=== PATIENT | male | born 1985 | race Caucasian/White ===

== ENCOUNTER 2020-05-16 22:23 | Inpatient (IN) | payer MEDICAID, MEDICARE ==
[~2020-05-16] VITALS: Ht 175.2 cm; Wt 106.9 kg
[~2020-05-16 22:23] MED LIST: OMEP20CA12 PO; SCR1T1 PO
[2020-05-16] MEDS ORDERED: LACTATED RINGERS 1,000 ML IV ONE (22:32)
[2020-05-16 23:12] LABS: BASOPHILS # (AUTO) 0.1 10^3/uL (0.0-0.1); BASOPHILS % (AUTO) 0 % (0-10); EOSINOPHILS # (AUTO) 0.2 10^3/uL (0.0-0.3); EOSINOPHILS % (AUTO) 1 % (0-10); HEMATOCRIT 38 % (40-54); HEMOGLOBIN 12.8 g/dL (13.3-17.7); LYMPHOCYTES # (AUTO) 1.6 10^3/uL (1.0-4.0); LYMPHOCYTES % (AUTO) 7 % (12-44); MEAN CORPUSCULAR HEMOGLOBIN 31 pg (25-34); MEAN CORPUSCULAR HGB CONC 34 g/dL (32-36); MEAN CORPUSCULAR VOLUME 92 fL (80-99); MEAN PLATELET VOLUME 10.2 fL (9.0-12.2); MONOCYTES # (AUTO) 1.6 10^3/uL (0.0-1.0); MONOCYTES % (AUTO) 7 % (0-12); NEUTROPHILS % (AUTO) 85 % (42-75); PLATELET COUNT 255 10^3/uL (130-400); WHITE BLOOD COUNT 23.5 10^3/uL (4.3-11.0)
[2020-05-16] MEDS ORDERED: KETOROLAC 30 MG/ML VIAL IVP STA (23:13)
[2020-05-16] MEDS ORDERED: CEFEPIME INJECTION 2,000 MG in WATER (STERILE) FOR INJECTION 20 ML IV ONE (23:15)
[2020-05-16] MEDS ORDERED: ONDANSETRON 4 MG/2 ML (SDV) Z0FRAN ONE (23:18)
[2020-05-16 23:23] LABS: ALBUMIN 4.1 GM/DL (3.2-4.5); CHLORIDE 103 MMOL/L (98-107); POTASSIUM 3.8 MMOL/L (3.6-5.0); SODIUM 135 MMOL/L (135-145)
[2020-05-16 23:25] LABS: BAND NEUTROPHILS 0 %; BASOPHILS % (MANUAL) 0 %; EOSINOPHILS % (MANUAL) 1 %; LYMPHOCYTES % (MANUAL) 7 %; METAMYELOCYTES % 1 %; MONOCYTES % (MANUAL) 6 %; NEUTROPHILS % (MANUAL) 85 %; RBC MORPH NORMAL
[2020-05-16 23:26] LABS: GLUCOSE 119 MG/DL (70-105); TOTAL PROTEIN 7.1 GM/DL (6.4-8.2)
[2020-05-16 23:27] LABS: CARBON DIOXIDE 21 MMOL/L (21-32)
[2020-05-16 23:28] LABS: BILIRUBIN,TOTAL 0.5 MG/DL (0.1-1.0)
[2020-05-16 23:29] LABS: ALKALINE PHOSPHATASE 78 U/L (40-136)
[2020-05-16 23:30] LABS: ERYTHROCYTE SEDIMENTATION RATE 23 MM/HR (0-15); GFR ESTIMATED > 60
[2020-05-16] MEDS ORDERED: ONDANSETRON 4 MG/2 ML (SDV) Z0FRAN IVP ONE (23:30)
[2020-05-16 23:31] LABS: BUN/CREATININE RATIO 13
[2020-05-16 23:32] LABS: ALANINE AMINOTRANSFERASE 15 U/L (0-55); MAGNESIUM 1.8 MG/DL (1.6-2.4)
--- NOTE | 2020-05-16 23:37 | ED Lower Extremity ---
General Stated Complaint: FEVER/R THIGH PAIN/REDNESS/SWELLING/UNK COVID TEST Source: patient History of Present Illness Date Seen by Provider: May 16, 2020 Time Seen by Provider: 22:32 Initial Comments PT ARRIVES VIA POV C/O PAIN, REDNESS AND SWELLING TO RIGHT UPPER MEDIAL THIGH SINCE YESTERDAY SEEN AT [facility] YESTERDAY FOR THIS PROBLEM--TEMP WAS 103 THERE HAD ULTRASOUND BUT DOES NOT KNOW RESULTS PT GIVES CONVOLUTED STORY ABOUT THEM WANTING TO ADMIT HIM, "BUT THE INSURANCE WOULDN'T COVER IT" --STATES HE HAS "MEDICAID AND MEDICARE AND PART D". WAS GIVEN RX'S FOR KEFLEX AND CLINDAMYCIN--TOOK FIRST DOSE OF EACH TONIGHT, JUST PRIOR TO ARRIVAL STATES HE WAS TESTED FOR COVID-19, BUT DOES NOT KNOW RESULTS C/O NAUSEA, NO VOMITING. NO KNOWN INJURY PT HAS HAD MRSA IN THE PAST AND THIS IS THE SAME PT STATES ON ARRIVAL THAT HE DOES NOT WANT I&D DONE ON IT, STATING "IT HURTS TO MUCH ALREADY" PT SMOKES METH, DENIES IV USE SMOKES 1/2 PPD CIGARETTES STATES "I USED TO BE A REALLY BAD ALCOHOLIC" DRANK 1/2 GALLON A DAY, BUT CLAIMS NO RECENT USE PCP: NONE Allergies and Home Medications Allergies Coded Allergies: eszopiclone (Verified Allergy, Unknown, 05/16/20) quetiapine (Verified Allergy, Unknown, 05/16/20) amoxicillin trihydrate (Verified Adverse Reaction, Intermediate, NAUSEA, 05/19/12) potassium clavulanate (Verified Adverse Reaction, Intermediate, NAUSEA, 05/19/12) Home Medications Omeprazole 20 Mg Capsule.dr, 1 CAP PO DAILY Prescribed by: MICHAEL PERES on 05/19/122256 Sucralfate 1 Gm Tab, 1 GM PO ACHS Prescribed by: MICHEAL PERES on 05/19/122256 Patient Home Medication List Home Medication List Reviewed: Yes Review of Systems Constitutional: fever EENTM: no symptoms reported Respiratory: no symptoms reported; No cough Cardiovascular: no symptoms reported Gastrointestinal: see HPI, nausea; No vomiting Genitourinary: no symptoms reported Musculoskeletal: see HPI Skin: see HPI Psychiatric/Neurological: No Symptoms Reported; Denies Numbness, Denies Paresthesia, Denies Weakness Past Hsqdijq-Tgqvgb-Siplpk Hx Past Med/Social Hx: Reviewed and Corrections made Patient Social History Alcohol Use: Regular Use Recreational Drug Use: Yes (SMOKES METH) Smoking Status: Current Everyday Smoker Type Used: Cigarettes Recent Foreign Travel: No Contact w/Someone Who Travel: No Past Medical History Surgeries: Yes (EGD) Respiratory: No Cardiac: No Neurological: No Reproductive Disorders: No Genitourinary: No Gastrointestinal: Yes Gastroesophageal Reflux Musculoskeletal: No Endocrine: No HEENT: No Cancer: No Psychosocial: Yes Anxiety Integumentary: Yes (MRSA) Blood Disorders: No Family Medical History SOCIAL HISTORY : -ETOH--PT STATES "I USED TO BE A BAD ALCOHOLIC" DRANK 1/2 GALLON OF ALCOHOL / DAY. CLAIMS NO RECENT USE OF 05/16/20 -DRUGS--SMOKES METH, DENIES IV USE -SMOKES 1/2 PPD CIGARETTES Physical Exam Vital Signs Vital Signs - First Documented 05/16/20 22:30 Temp 38.2 Pulse 109 Resp 26 B/P (MAP) 131/87 (102) Pulse Ox 100 O2 Delivery Room Air Capillary Refill : Height, Weight, BMI Height: '" Weight: lbs. oz. kg; BMI Method:Stated General Appearance: WD/WN, no apparent distress, other (CONSTANT MOVEMENTS, SPEECH RAPID AND SOMEWHAT MUMBLED AND ERRATIC. APPEARS TO BE UNDER THE INFLUENCE OF SOME SUBSTANCE/S) Cardiovascular: no murmur, tachycardia Respiratory: normal breath sounds, no respiratory distress, no accessory muscle use Gastrointestinal: non tender, soft Back: no CVA tenderness Legs: right leg other (RIGHT UPPER MEDIAL THIGH WITH VERY LARGE AREA OF ERYTHEMA, WARMTH, TENDERNESS, AND INDURATION. NO FLUCTUANCE. NO DRAINAGE. NO STREAKS. DIAMETER > 30 CM. EXTENDS FROM GROIN TO MEDIAL THIGH. DOES NOT INVOLVE SCROTUM/TESTICLES/PERINEUM OR PERIRECTAL OR BUTTOCKS AREA. 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 ), other (AREA TO RIGHT THIGH NOTED ABOVE) Progress/Results/Core Measures Results/Orders Lab Results Laboratory Tests Test 05/16/20 22:49 05/16/20 22:53 05/16/20 22:58 05/17/20 01:10 Range/Units Coronavirus 2019 (STEPHANIE) Negative Negative Serum Alcohol < 10 <10 MG/DL White Blood Count 23.5 H 4.3-11.0 10^3/uL Red Blood Count 4.12 L 4.30-5.52 10^6/uL Hemoglobin 12.8 L 13.3-17.7 g/dL Hematocrit 38 L 40-54 % Mean Corpuscular Volume 92 80-99 fL Mean Corpuscular Hemoglobin 31 25-34 pg Mean Corpuscular Hemoglobin Concent 34 32-36 g/dL Red Cell Distribution Width 12.6 10.0-14.5 % Platelet Count 255 130-400 10^3/uL Mean Platelet Volume 10.2 9.0-12.2 fL Immature Granulocyte % (Auto) 1 % Neutrophils (%) (Auto) 85 H 42-75 % Lymphocytes (%) (Auto) 7 L 12-44 % Monocytes (%) (Auto) 7 0-12 % Eosinophils (%) (Auto) 1 0-10 % Basophils (%) (Auto) 0 0-10 % Neutrophils # (Auto) 20.0 H 1.8-7.8 10^3/uL Lymphocytes # (Auto) 1.6 1.0-4.0 10^3/uL Monocytes # (Auto) 1.6 H 0.0-1.0 10^3/uL Eosinophils # (Auto) 0.2 0.0-0.3 10^3/uL Basophils # (Auto) 0.1 0.0-0.1 10^3/uL Immature Granulocyte # (Auto) 0.1 0.0-0.1 10^3/uL Neutrophils % (Manual) 85 % Lymphocytes % (Manual) 7 % Monocytes % (Manual) 6 % Eosinophils % (Manual) 1 % Basophils % (Manual) 0 % Metamyelocytes % 1 % Band Neutrophils 0 % Blood Morphology Comment NORMAL Erythrocyte Sedimentation Rate 23 H 0-15 MM/HR Prothrombin Time 14.0 12.2-14.7 SEC INR Comment 1.0 0.8-1.4 Activated Partial Thromboplast Time 39 H 24-35 SEC Sodium Level 135 135-145 MMOL/L Potassium Level 3.8 3.6-5.0 MMOL/L Chloride Level 103 98-107 MMOL/L Carbon Dioxide Level 21 21-32 MMOL/L Anion Gap 11 5-14 MMOL/L Blood Urea Nitrogen 13 7-18 MG/DL Creatinine 1.00 0.60-1.30 MG/DL Estimat Glomerular Filtration Rate > 60 BUN/Creatinine Ratio 13 Glucose Level 119 H 70-105 MG/DL Lactic Acid Level 1.76 0.50-2.00 MMOL/L Calcium Level 9.0 8.5-10.1 MG/DL Corrected Calcium 8.9 8.5-10.1 MG/DL Magnesium Level 1.8 1.6-2.4 MG/DL Total Bilirubin 0.5 0.1-1.0 MG/DL Aspartate Amino Transf (AST/SGOT) 9 5-34 U/L Alanine Aminotransferase (ALT/SGPT) 15 0-55 U/L Alkaline Phosphatase 78 40-136 U/L C-Reactive Protein High Sensitivity 23.57 H 0.00-0.50 MG/DL Total Protein 7.1 6.4-8.2 GM/DL Albumin 4.1 3.2-4.5 GM/DL Procalcitonin 0.11 H <0.10 NG/ML My Orders Orders - LEIDY OVIEDO DO Ed Iv/Invasive Line Start (05/16/20 22:32) Monitor-Rhythm Ecg Trace Only (05/16/20:32) Cbc With Automated Diff (05/16/20:32) Comprehensive Metabolic Panel (05/16/20:32) Hs C Reactive Protein (05/16/20 22:32) Drug Screen Stat (Urine) (05/16/20 22:32) Lactic Acid Analyzer (05/16/20 22:32) Magnesium (05/16/20 22:32) Procalcitonin (Pct) (05/16/20 22:32) Protime With Inr (05/16/20:32) Partial Thromboplastin Time (05/16/20 22:32) Ua Culture If Indicated (05/16/20 22:32) Blood Culture (05/16/20 22:32) Erythrocyte Sedimentation Rate (05/16/20 22:32) Ed Iv/Invasive Line Start (05/16/20 22:32) Lactated Ringers (Lr 1000 Ml Iv Solution (05/16/20 22:32) Sputum Culture (05/16/20 22:32) Urine Culture (05/16/20 22:32) Chest 1 View, Ap/Pa Only (05/16/20 22:32) Ed Iv/Invasive Line Start (05/16/20 22:32) Ed Iv/Invasive Line Start (05/16/20 22:32) Vital Signs Adult Sepsis Patie Q15M (05/16/20 22:32) Remove Rings In Anticipation O (05/16/20 22:32) Covid 19 Inhouse Test (05/16/20 22:32) Manual Differential (05/16/20 22:58) Vancomycin Injection (Vancomycin Injecti (05/16/20 23:15) Cefepime Injection (Maxipime Injection) (05/16/20 23:15) Ketorolac Injection (Toradol Injection) (05/16/20 23:13) Coronavirus Sars-Cov-2 So 2018 (05/16/20 23:21) Ondansetron Injection (Zofran Injectio (05/16/20 23:30) Ondansetron Injection (Zofran Injectio (05/16/20 23:18) Alcohol (05/16/20 23:37) Acetaminophen Tablet (Tylenol Tablet) (05/17/20 00:06) Ed Iv/Invasive Line Start (05/17/20 00:20) Lactated Ringers (Lr 1000 Ml Iv Solution (05/17/20 00:20) Ct Pelvis Wo (05/17/20 00:49) Medications Given in ED Current Medications Medications Dose Ordered Sig/Barbie Route Start Time Stop Time Status Last Admin Dose Admin Cefepime HCl 2000 mg/Sterile Water 20 ml @ 240 mls/hr ONCE ONCE IV 05/16/20 23:15 05/16/20 23:19 DC 05/16/20 23:25 240 MLS/HR Lactated Ringer's 1,000 ml @ 0 mls/hr Q0M ONCE IV 05/16/20 22:32 05/16/20 22:35 DC 05/16/20 23:10 1,000 MLS/HR Lactated Ringer's 1,000 ml @ 0 mls/hr Q0M ONCE IV 05/17/20 00:20 05/17/20 00:22 DC 05/17/20 00:55 1,000 MLS/HR Ondansetron HCl 8 mg ONCE ONCE IVP 05/16/20 23:30 05/16/20 23:31 DC 05/16/20 23:21 8 MG Vital Signs/I&O 05/16/20 22:30 Temp 38.2 Pulse 109 Resp 26 B/P (MAP) 131/87 (102) Pulse Ox 100 O2 Delivery Room Air 05/17/20 00:00 Intake Total 20 ml Balance 20 ml Progress Progress Note : Progress Note PT PLACED IN ISOLATION ROOM, PPE WORN AT ALL TIMES COVID-19 TESTING PERFORMED. GIVEN IV FLUIDS, ANTIBIOTICS, TORADOL FOR PAIN, TYLENOL FOR FEVER HEART RATE DOWN, TEMP DOWN PAIN IMPROVED. NO DETERIORATION IN PT'S CONDITION DURING ER STAY Diagnostic Imaging Comments CXR--NO ACUTE PROCESS, PENDING RADIOLOGIST REVIEW CT PELVIS--MODERATE INFLAMMATORY STRANDING, SUSPICIOUS FOR CELLULITIS, EXTENDING FROM RIGHT INGUINAL REGION TO RIGHT MEDIAL THIGH. NO DRAINABLE ABSCESS. PER [facility] VIA FAX AT 0133 Reviewed: Reviewed by Me Departure Communication (Admissions) 0015--SPOKE WITH DR. CASIANO, ADVISES CT SCAN AND CALL HIM BACK 013--SPOKE WITH DR. ELLIOTT, NO BEDS AVAILABLE AT [facility] ( NO REGULAR MEDICAL BEDS AVAILABLE HERE ) 0136--SPOKE WITH DR. YAN, HOSPITALIST, ACCEPTS PT FOR ADMIT TO ICU 0138--SPOKE WITH DR. CASIANO, REVIEWED CT RESULTS, HE ADVISES ADDITION OF CLINDAMYCIN TO CEFEPIME AND VANCOMYCIN Impression Primary Impression: Sepsis Additional Impressions: Cellulitis of right thigh Methamphetamine use Person under investigation for COVID-19 Hx MRSA infection Disposition: ADMITTED INPATIENT Condition: Improved Admissions Decision to Admit Reason: Admit from ER (General) Decision to Admit/Date: May 17, 2020 Time/Decision to Admit Time: 01:40 Departure-Patient Inst. Referrals: NO,LOCAL PHYSICIAN (PCP/Family) Primary Care Physician Images Extremities-Lower 1 - Cellulitis, Swelling, Tenderness LEIDY OVIEDO DO May 16, 2020 23:37
[2020-05-16] MEDS: VANCOMYCIN INJECTION 1,000 MG in NS (IVPB) 250 ML IV SCH (23:40)
--- NOTE | 2020-05-17 00:05 | NUR ---
Report from VERONICA Malloy.
[2020-05-17] MEDS ORDERED: ACETAMINOPHEN 500 MG TAB (TYLENOL) PO STA (00:06)
[2020-05-17] MEDS ORDERED: LACTATED RINGERS 1,000 ML IV ONE ×2 (00:20→01:46)
[2020-05-17] MEDS: VANCOMYCIN INJECTION 1,000 MG in NS (IVPB) 250 ML IV SCH (00:55)
--- NOTE | 2020-05-17 00:55 | NUR ---
Pt to CT by cart with this nurse present.
[2020-05-17 02:10] LABS: BILIRUBIN,URINE NEGATIVE (NEGATIVE); CLARITY,URINE CLEAR; COLOR,URINE YELLOW; GLUCOSE, URINE (UA) NEGATIVE (NEGATIVE); KETONES,URINE NEGATIVE (NEGATIVE); LEUKOCYTE ESTERASE ,URINE NEGATIVE (NEGATIVE); NITRITE,URINE NEGATIVE (NEGATIVE); PROTEIN,URINE NEGATIVE (NEGATIVE)
[2020-05-17 02:23] LABS: BACTERIA,URINE TRACE /HPF; SQUAMOUS EPITHELIAL CELL,UR RARE /HPF
[2020-05-17 02:29] LABS: AMPHETAMINE SCREEN, URINE POSITIVE (NEGATIVE); BARBITURATE SCREEN URINE NEGATIVE (NEGATIVE); BENZODIAZEPINES SCREEN URINE NEGATIVE (NEGATIVE); CANNABINOID SCREEN, URINE NEGATIVE (NEGATIVE); COCAINE SCREEN URINE NEGATIVE (NEGATIVE); METHADONE STAT NEGATIVE (NEGATIVE); METHAMPHETAMINE SCREEN URINE S POSITIVE (NEGATIVE); OPIATE SCREEN URINE NEGATIVE (NEGATIVE); OXYCODONE STAT NEGATIVE (NEGATIVE); PROPOXYPHENE STAT NEGATIVE (NEGATIVE); TRICYCLIC ANTIDEPRESSANTS SCRE NEGATIVE (NEGATIVE)
[2020-05-17 02:34] VITALS: BP 114/71
[2020-05-17] MEDS ORDERED: NS IV 1000 ML 1,000 ML ONE (02:49)
[2020-05-17] MEDS: NS IV 1000 ML 1,000 ML IV SCH ×4 (03:15→19:56)
[2020-05-17] MEDS ORDERED: fentaNYL INJECTION 100 MCG/2 ML AMP IVP PRN (03:15)
[2020-05-17] MEDS ORDERED: KETOROLAC 30 MG/ML VIAL IVP PRN (03:15)
[2020-05-17] MEDS ORDERED: ONDANSETRON 4 MG/2 ML (SDV) Z0FRAN IVP PRN (03:15)
[2020-05-17] MEDS: ACETAMINOPHEN 500 MG TAB (TYLENOL) PO PRN ×2 (04:55→20:42)
[2020-05-17 05:14] LABS: BASOPHILS # (AUTO) 0.1 10^3/uL (0.0-0.1); BASOPHILS % (AUTO) 0 % (0-10); EOSINOPHILS # (AUTO) 0.2 10^3/uL (0.0-0.3); EOSINOPHILS % (AUTO) 1 % (0-10); HEMATOCRIT 36 % (40-54); LYMPHOCYTES # (AUTO) 1.7 10^3/uL (1.0-4.0); LYMPHOCYTES % (AUTO) 9 % (12-44); MEAN CORPUSCULAR HEMOGLOBIN 31 pg (25-34); MEAN CORPUSCULAR HGB CONC 33 g/dL (32-36); MEAN CORPUSCULAR VOLUME 94 fL (80-99); MEAN PLATELET VOLUME 10.5 fL (9.0-12.2); MONOCYTES # (AUTO) 1.2 10^3/uL (0.0-1.0); MONOCYTES % (AUTO) 6 % (0-12); NEUTROPHILS # (AUTO) 15.8 10^3/uL (1.8-7.8); NEUTROPHILS % (AUTO) 83 % (42-75); PLATELET COUNT 219 10^3/uL (130-400); WHITE BLOOD COUNT 19.1 10^3/uL (4.3-11.0)
[2020-05-17 05:35] LABS: ALBUMIN 3.6 GM/DL (3.2-4.5); CHLORIDE 104 MMOL/L (98-107); POTASSIUM 4.1 MMOL/L (3.6-5.0); SODIUM 135 MMOL/L (135-145)
[2020-05-17 05:36] LABS: CALCIUM 8.5 MG/DL (8.5-10.1)
[2020-05-17 05:37] LABS: GLUCOSE 110 MG/DL (70-105)
[2020-05-17 05:38] LABS: TOTAL PROTEIN 6.2 GM/DL (6.4-8.2)
[2020-05-17 05:39] LABS: BILIRUBIN,TOTAL 0.6 MG/DL (0.1-1.0); CARBON DIOXIDE 21 MMOL/L (21-32)
[2020-05-17 05:41] LABS: ALKALINE PHOSPHATASE 73 U/L (40-136); CREATININE SERUM 0.97 MG/DL (0.60-1.30); GFR ESTIMATED > 60
[2020-05-17 05:42] LABS: BUN/CREATININE RATIO 11
[2020-05-17 05:44] LABS: ALANINE AMINOTRANSFERASE 30 U/L (0-55)
[2020-05-17] MEDS: CLINDAMYCIN 600 MG/50 ML IVPB 50 ML IV SCH ×3 (06:15→18:47)
[2020-05-17] MEDS: CEFEPIME 1,000 MG/SWFI 10 ML IV PUSH IV SCH ×6 (06:16→18:47)
--- NOTE | 2020-05-17 07:22 | Diagnostic Imaging Report ---
PROCEDURE: CT pelvis without contrast. TECHNIQUE: Multiple contiguous axial images were obtained through the pelvis without the use of intravenous contrast. Sagittal and coronal reformations were performed. Auto Exposure Controls were utilized during the CT exam to meet ALARA standards for radiation dose reduction. INDICATION: Right groin swelling and cellulitis. COMPARISON: None available. FINDINGS: Induration of the subcutaneous fat is present in the medial aspect of the right thigh extending along the perineal region. However, there is no soft tissue gas. No loculated fluid collection that would indicate a drainable abscess. No intraperitoneal fluid collection. No fracture or osseous erosions. Thigh musculature is normal in bulk and attenuation on both sides. IMPRESSION: 1. No soft tissue gas or loculated drainable collection. 2. Induration with the subcutaneous fat of the medial right thigh should correspond to the patient's reported cellulitis. 3. Findings are in agreement with the preliminary report. Dictated by: Dictated on workstation # [id number]
--- NOTE | 2020-05-17 07:27 | Diagnostic Imaging Report ---
CHEST 1 VIEW, AP/PA ONLY Indication: Sepsis Comparison: None available. Findings: No focal airspace disease in the visualized lungs. Please note that the posterior lower lobes are poorly evaluated by portable radiography. No pleural effusion or pneumothorax. Normal cardiomediastinal silhouette. Impression: 1. No acute cardiopulmonary process by portable radiography. Dictated by: Dictated on workstation # [id number]
[2020-05-17] MEDS ORDERED: ENOXAPARIN 100 MG/1 ML (LOVENOX) SYR SC NR (09:00)
[2020-05-17] MEDS: VANCOMYCIN 1250 MG/NS 250 ML IVPB IV SCH ×6 (09:47→23:04)
--- NOTE | 2020-05-17 10:11 | History & Physical-Hospitalist ---
History of Present Illness HPI/Chief Complaint Chief complaint: Right thigh cellulitis History of present illness: This is a 34-year-old white male who presented to t he ER with worsening right medial thigh swelling and pain with redness. He is unsure when it really started. His drug screen was positive for methamphetamines. Patient was given IV antibiotics and Dr. Ashton consulted for possible incision and drainage. Patient has refused incision and drainage. Patient very jumpy and obviously withdrawing from methamphetamines. COVID swab taken he was in isolation and use of PPE was maintained during the entire interview and exam. Covid test returned back negative at 2000 hrs. Patient was about to leave AGAINST MEDICAL ADVICE but he decided against it. Source: patient Exam Limitations: no limitations Date Seen 05/17/20 Time Seen by a Provider: 12:00 Attending Physician Kellie Chin MD PCP No,Local Physician Referring Physician Date of Admission May 17, 2020 at 01:40 Home Medications & Allergies Home Medications Reviewed patient Home Medication Reconciliation performed by pharmacy medication reconciliations wet process technician and/or nursing. Patients Allergies have been reviewed. Allergies Allergies Coded Allergies eszopiclone (Verified Allergy, Unknown, 05/16/20) quetiapine (Verified Allergy, Unknown, 05/16/20) amoxicillin trihydrate (Verified Adverse Reaction, Intermediate, NAUSEA, 05/19/12) potassium clavulanate (Verified Adverse Reaction, Intermediate, NAUSEA, 05/19/12) Past Cdeoekj-Fcqwon-Xdmzna Hx Past Med/Social Hx: Reviewed Nursing Past Med/Soc Hx, Reviewed and Corrections made Patient Social History Marrital Status: single Employed/Student: unemployed Alcohol Use: Regular Use Recreational Drug Use: Yes (SMOKES METH) Smoking Status: Current Everyday Smoker Type Used: Cigarettes 2nd Hand Smoke Exposure: Yes Recent Foreign Travel: No Contact w/other who traveled: No Recent Hopitalizations: No Recent Infectious Disease Expo: No Past Medical History Reproductive: No Gastrointestinal: Gastroesophageal Reflux Psychosocial: Anxiety History of Blood Disorders: No Family History SOCIAL HISTORY : -ETOH--PT STATES "I USED TO BE A BAD ALCOHOLIC" DRANK 1/2 GALLON OF ALCOHOL / DAY. CLAIMS NO RECENT USE OF 05/16/20 -DRUGS--SMOKES METH, DENIES IV USE -SMOKES 1/2 PPD CIGARETTES Review of Systems Constitutional: see HPI, malaise, weakness Physical Exam Physical Exam Vital Signs Vital Signs - First Documented 05/16/20 22:30 Temp 38.2 Pulse 109 Resp 26 B/P (MAP) 131/87 (102) Pulse Ox 100 O2 Delivery Room Air Capillary Refill : Less Than 3 Seconds Height, Weight, BMI Height: '" Weight: lbs. oz. kg; 33.00 BMI Method:Stated General Appearance: No Apparent Distress Eyes: Right Eye Normal Inspection, Right Eye PERRL HEENT: PERRL/EOMI, TMs Normal, Normal ENT Inspection, Pharynx Normal, Moist Mucous Membranes Neck: Full Range of Motion, Normal Inspection, Non Tender Respiratory: Chest Non Tender, Lungs Clear, Normal Breath Sounds, No Accessory Muscle Use, No Respiratory Distress Cardiovascular: Regular Rate, Rhythm, No Edema, No Gallop, No JVD, No Murmur, Normal Peripheral Pulses Gastrointestinal: Normal Bowel Sounds, No Organomegaly, No Pulsatile Mass, Non Tender, Soft Back: Normal Inspection, No CVA Tenderness, No Vertebral Tenderness Extremity: Normal Capillary Refill, Normal Inspection, Normal Range of Motion, Non Tender, No Calf Tenderness, No Pedal Edema Neurologic/Psychiatric: Alert, Oriented x3, No Motor/Sensory Deficits, Normal Mood/Affect Skin: Normal Color, Warm/Dry, Rash (right medial thigh redness and ttp) Lymphatic: No Adenopathy Results Results/Procedures Labs Laboratory Tests 05/16/20 22:58 05/17/20 04:55 Patient resulted labs reviewed. Assessment/Plan Admission Diagnosis Assessment: Sepsis Right medial thigh cellulitis with questionable abscess consulting Dr. Ashton Methamphetamine use Plan: IV antibiotics COVID swab negative DVT prophylaxis Monitor for withdrawal Admission Status: Inpatient Order (span 2 midnights) Reason for Inpatient Admission: cellulitis severe Diagnosis/Problems Diagnosis/Problems (1) Cellulitis of right thigh Status: Acute (2) Hx MRSA infection Status: Acute (3) Methamphetamine use Status: Acute (4) Sepsis Status: Acute (5) Person under investigation for COVID-19 Status: Acute Clinical Quality Measures DVT/VTE Risk/Contraindication: Risk Factor Score Per Nursin RFS Level Per Nursing on Admit: 4+=Very High ASUNCION ELLIOTT DO May 17, 2020 10:11
[2020-05-17] MEDS ORDERED: IBUPROFEN 600 MG (MOTRIN) TAB PO ONE (11:53)
[2020-05-17] MEDS ORDERED: DOCUSATE SODIUM 100 MG (COLACE) CAP PO ONE (11:53)
[2020-05-17] MEDS ORDERED: IBUPROFEN TABLET 200 MG TAB PO PRN ×2 (12:00→18:00)
[2020-05-17] MEDS: DOCUSATE SODIUM 100 MG (COLACE) CAP PO PRN (12:13)
[2020-05-17] MEDS: IBUPROFEN 600 MG (MOTRIN) TAB PO PRN ×2 (12:14→23:06)
[2020-05-17] MEDS ORDERED: CLIN150C17 PO (13:03)
[2020-05-17] MEDS ORDERED: CEPH500C PO (13:03)
[2020-05-17] MEDS ORDERED: IBUP-2473 PO (13:05)
[2020-05-17] MEDS ORDERED: ACET-2267 PO (13:05)
--- NOTE | 2020-05-17 13:06 | NUR ---
SPOKE WITH THE PT (I CALLED HIS ROOM PHONE) AND WENT THRU THE EXT MED HISTORY TO COMPLETE THE MED REC ACCORDING TO THE PT THE ONLY PRESCRIPTIONS MEDS HE TAKES ARE THE 2 ANTIBIOTICS THAT HE HAD FILLED AT [facility] ON 05-16-2020 OTC MEDS: TYLENOL IBUPROFEN
--- NOTE | 2020-05-17 14:04 | NUR ---
PTD VANCOMYCIN. LABS: 105.3 KG, SCr 0.97, CrCl 128.3, BMI 34.3 PLAN: 2G BOLUS DOSE GIVEN IN ED; MAINT DOSE 1250MG Q8H PER E-PHARMACY. VANCOMYCIN TROUGH DUE 05/18 @ 0600. IF TROUGH >20, HOLD DOSE AND NOTIFY PHARMACY FOR ADJUSTMENTS.
--- NOTE | 2020-05-17 16:54 | Consultation - Surgery ---
History of Present Illness History of Present Illness Patient Consulted On(yovany/time) 05/17/20 14:40 Date Seen by Provider: May 17, 2020 Time Seen by Provider: 14:40 Allergies and Home Medications Allergies Coded Allergies: eszopiclone (Verified Allergy, Unknown, 05/16/20) quetiapine (Verified Allergy, Unknown, 05/16/20) amoxicillin trihydrate (Verified Adverse Reaction, Intermediate, NAUSEA, 05/19/12) potassium clavulanate (Verified Adverse Reaction, Intermediate, NAUSEA, 05/19/12) Home Medications Acetaminophen 500 Mg Tablet, 1,000 MG PO Q6H PRN for PAIN-MILD (1-4), (Reported) Cephalexin 500 Mg Capsule, 500 MG PO QID, (Reported) FILLED 05-16-2020 #40/10 DAY SUPPLY Clindamycin HCl 150 Mg Capsule, 450 MG PO QID, (Reported) TAKES 3 (150MG) CAPS FILLED 05-16-2020 #84/7 DAY SUPPLY Ibuprofen 200 Mg Tablet, 400 MG PO Q8H PRN for PAIN-MILD (1-4), (Reported) Past Ubzoydv-Ngqvdp-Jkgmre Hx Patient Social History Alcohol Use: Regular Use Recreational Drug Use: Yes (SMOKES METH) Smoking Status: Current Everyday Smoker Type Used: Cigarettes 2nd Hand Smoke Exposure: Yes Recent Foreign Travel: No Contact w/Someone Who Travel: No Recent Infectious Disease Expo: No Recent Hopitalizations: No Surgeries History of Surgeries: Yes (EGD) Respiratory History of Respiratory Disorde: No Cardiovascular History of Cardiac Disorders: No Neurological History of Neurological Disord: No Reproductive System Hx Reproductive Disorders: No Genitourinary History of Genitourinary Disor: No Gastrointestinal History of Gastrointestinal Di: Yes Gastrointestinal Disorders: Gastroesophageal Reflux Musculoskeletal History of Musculoskeletal Dis: No Endocrine History of Endocrine Disorders: No HEENT History of HEENT Disorders: No Cancer History of Cancer: No Psychosocial History of Psychiatric Problem: Yes Behavioral Health Disorders: Anxiety Integumentary History of Skin or Integumenta: Yes (MRSA) Blood Transfusions History of Blood Disorders: No Physical Exam-General Problems Physical Exam Vital Signs Vital Signs - First Documented 05/16/20 22:30 Temp 38.2 Pulse 109 Resp 26 B/P (MAP) 131/87 (102) Pulse Ox 100 O2 Delivery Room Air Capillary Refill : Less Than 3 Seconds Data Review Labs Laboratory Tests 05/16/20 22:49: Coronavirus 2019 (STEPHANIE) Negative 05/16/20 22:53: Serum Alcohol < 10 05/16/20 22:58: White Blood Count 23.5H, Red Blood Count 4.12L, Hemoglobin 12.8L, Hematocrit 38L , Mean Corpuscular Volume 92, Mean Corpuscular Hemoglobin 31, Mean Corpuscular Hemoglobin Concent 34, Red Cell Distribution Width 12.6, Platelet Count 255, Mean Platelet Volume 10.2, Immature Granulocyte % (Auto) 1, Neutrophils (%) (Auto) 85H, Lymphocytes (%) (Auto) 7L, Monocytes (%) (Auto) 7, Eosinophils (%) (Auto) 1, Basophils (%) (Auto) 0, Neutrophils # (Auto) 20.0H, Lymphocytes # (Auto) 1.6, Monocytes # (Auto) 1.6H, Eosinophils # (Auto) 0.2, Basophils # (Auto) 0.1, Immature Granulocyte # (Auto) 0.1, Neutrophils % (Manual) 85, Lymphocytes % (Manual) 7, Monocytes % (Manual) 6, Eosinophils % (Manual) 1, Basophils % (Manual) 0, Metamyelocytes % 1, Band Neutrophils 0, Blood Morphology Comment NORMAL, Erythrocyte Sedimentation Rate 23H, Prothrombin Time 14.0, INR Comment 1.0, Activated Partial Thromboplast Time 39H, Sodium Level 135, Potassium Level 3.8, Chloride Level 103, Carbon Dioxide Level 21, Anion Gap 11, Blood Urea Nitrogen 13, Creatinine 1.00, Estimat Glomerular Filtration Rate > 60, BUN/Creatinine Ratio 13, Glucose Level 119H, Lactic Acid Level 1.76, Calcium Level 9.0, Corrected Calcium 8.9, Magnesium Level 1.8, Total Bilirubin 0.5, Aspartate Amino Transf (AST/SGOT) 9, Alanine Aminotransferase (ALT/SGPT) 15, Alkaline Phosphatase 78, C-Reactive Protein High Sensitivity 23.57H, Total Protein 7.1, Albumin 4.1, Procalcitonin 0.11H 05/17/20 01:10: 05/17/20 02:02: Urine Color YELLOW, Urine Clarity CLEAR, Urine pH 7.0, Urine Specific [place] 1.015L, Urine Protein NEGATIVE, Urine Glucose (UA) NEGATIVE, Urine Ketones NEGATIVE, Urine Nitrite NEGATIVE, Urine Bilirubin NEGATIVE, Urine Urobilinogen 1.0, Urine Leukocyte Esterase NEGATIVE, Urine RBC (Auto) NEGATIVE, Urine RBC NONE, Urine WBC NONE, Urine Squamous Epithelial Cells RARE, Urine Crystals NONE, Urine Bacteria TRACE, Urine Casts NONE, Urine Mucus NEGATIVE, Urine Culture Indicated CULTURE PENDING, Urine Opiates Screen NEGATIVE, Urine Oxycodone Screen NEGATIVE, Urine Methadone Screen NEGATIVE, Urine Propoxyphene Screen NEGATIVE, Urine Barbiturates Screen NEGATIVE, Ur Tricyclic Antidepressants Screen NEGATIVE, Urine Phencyclidine Screen NEGATIVE, Urine Amphetamines Screen POSITIVEH, Urine Methamphetamines Screen POSITIVEH, Urine Benzodiazepines Screen NEGATIVE, Urine Cocaine Screen NEGATIVE, Urine Cannabinoids Screen NEGATIVE 05/17/20 04:55: White Blood Count 19.1H, Red Blood Count 3.86L, Hemoglobin 12.0L, Hematocrit 36L , Mean Corpuscular Volume 94, Mean Corpuscular Hemoglobin 31, Mean Corpuscular Hemoglobin Concent 33, Red Cell Distribution Width 12.5, Platelet Count 219, Mean Platelet Volume 10.5, Immature Granulocyte % (Auto) 1, Neutrophils (%) (Auto) 83H, Lymphocytes (%) (Auto) 9L, Monocytes (%) (Auto) 6, Eosinophils (%) (Auto) 1, Basophils (%) (Auto) 0, Neutrophils # (Auto) 15.8H, Lymphocytes # (Auto) 1.7, Monocytes # (Auto) 1.2H, Eosinophils # (Auto) 0.2, Basophils # (Auto) 0.1, Immature Granulocyte # (Auto) 0.1, Sodium Level 135, Potassium Level 4.1, Chloride Level 104, Carbon Dioxide Level 21, Anion Gap 10, Blood Urea Nitrogen 11, Creatinine 0.97, Estimat Glomerular Filtration Rate > 60, BUN/Creatinine Ratio 11, Glucose Level 110H, Calcium Level 8.5, Corrected Calcium 8.8, Total Bilirubin 0.6, Aspartate Amino Transf (AST/SGOT) 29, Alanine Aminotransferase (ALT/SGPT) 30, Alkaline Phosphatase 73, Total Protein 6.2L, Albumin 3.6 Microbiology 05/16/20 Blood Culture - Preliminary, Resulted No growth Assessment/Plan Assessment/Plan Assessment/Plan Right thigh cellulitis leukocytosis Fever Sepsis PUI Patient feeling better. Cellulitis improving compared to outline continue abx Covid pending no surgical intervention will follow Clinical Quality Measures DVT/VTE Risk/Contraindication: Risk Factor Score Per Nursin RFS Level Per Nursing on Admit: 4+=Very High HUGH CASIANO DO May 17, 2020 16:54
--- NOTE | 2020-05-17 19:49 | NUR ---
DR. ELLIOTT NOTIFIED OF PT'S COVID PCR RESULTS BEING NEGATIVE. NEW ORDERS RECEIVED TO TAKE PT OUT OF ISOLATION
[2020-05-18] MEDS: CLINDAMYCIN 600 MG/50 ML IVPB 50 ML IV SCH ×4 (00:29→18:14)
[2020-05-18] MEDS: CEFEPIME 1,000 MG/SWFI 10 ML IV PUSH IV SCH ×10 (00:29→23:55)
[2020-05-18] MEDS: NS IV 1000 ML 1,000 ML IV SCH (04:31)
[2020-05-18] MEDS ORDERED: TROUGH ORDER-PHARMACY XX NR (06:00)
[2020-05-18 06:44] LABS: BASOPHILS # (AUTO) 0.1 10^3/uL (0.0-0.1); BASOPHILS % (AUTO) 0 % (0-10); EOSINOPHILS # (AUTO) 0.3 10^3/uL (0.0-0.3); EOSINOPHILS % (AUTO) 2 % (0-10); HEMATOCRIT 36 % (40-54); HEMOGLOBIN 11.9 g/dL (13.3-17.7); LYMPHOCYTES # (AUTO) 1.7 10^3/uL (1.0-4.0); LYMPHOCYTES % (AUTO) 8 % (12-44); MEAN CORPUSCULAR HEMOGLOBIN 31 pg (25-34); MEAN CORPUSCULAR HGB CONC 33 g/dL (32-36); MEAN CORPUSCULAR VOLUME 94 fL (80-99); MEAN PLATELET VOLUME 10.6 fL (9.0-12.2); MONOCYTES # (AUTO) 1.9 10^3/uL (0.0-1.0); MONOCYTES % (AUTO) 9 % (0-12); NEUTROPHILS # (AUTO) 16.2 10^3/uL (1.8-7.8); NEUTROPHILS % (AUTO) 80 % (42-75); PLATELET COUNT 214 10^3/uL (130-400); WHITE BLOOD COUNT 20.3 10^3/uL (4.3-11.0)
[2020-05-18 06:58] LABS: ALBUMIN 3.5 GM/DL (3.2-4.5)
[2020-05-18 06:59] LABS: CHLORIDE 108 MMOL/L (98-107); POTASSIUM 4.1 MMOL/L (3.6-5.0); SODIUM 141 MMOL/L (135-145)
[2020-05-18 07:00] LABS: CALCIUM 8.8 MG/DL (8.5-10.1)
[2020-05-18 07:01] LABS: GLUCOSE 107 MG/DL (70-105); TOTAL PROTEIN 6.3 GM/DL (6.4-8.2)
[2020-05-18 07:02] LABS: CARBON DIOXIDE 22 MMOL/L (21-32)
[2020-05-18 07:03] LABS: BILIRUBIN,TOTAL 0.4 MG/DL (0.1-1.0)
[2020-05-18 07:04] LABS: ALKALINE PHOSPHATASE 100 U/L (40-136)
[2020-05-18 07:05] LABS: CREATININE SERUM 0.87 MG/DL (0.60-1.30); GFR ESTIMATED > 60
[2020-05-18 07:06] LABS: BUN/CREATININE RATIO 8
[2020-05-18 07:08] LABS: ALANINE AMINOTRANSFERASE 68 U/L (0-55)
[2020-05-18 07:13] LABS: VANCOMYCIN,TROUGH 11.5 UG/ML (10.0-20.0)
[2020-05-18] MEDS: VANCOMYCIN 1250 MG/NS 250 ML IVPB IV SCH ×6 (07:45→23:55)
[2020-05-18] MEDS: ENOXAPARIN 40 MG/0.4 ML (LOVENOX) SYR SC SCH (08:52)
[2020-05-18] MEDS: DOCUSATE SODIUM 100 MG (COLACE) CAP PO PRN (08:56)
--- NOTE | 2020-05-18 09:04 | Progress Note - Surgery ---
DIOGENES ROGERS MED STUDENT 05/18/20 0904: Subjective Time Seen by a Provider: 07:30 Subjective/Events-last exam pt communicating and fully oriented. Pt overall feels well and has no new com plaints at this time. Pts states R thigh cellulitis look similiar today compared to yesterday. 09/18 pain. Pt has not passed stool since 05/14 which pt attributes to hospital environment, states abd feels distended. Pt denies chest pain, abd pain, SOB, dysuria and N/Ving. Review of Systems General: No Night Sweats, No Fatigue Pulmonary: No Dyspnea, No Pleuritic Chest Pain Cardiovascular: No: Chest Pain, Palpitations, Edema Gastrointestinal: Constipation (acute. ); No: Nausea, Vomiting, Abdominal Pain, Diarrhea Genitourinary: No Dysuria, No Incontinence Musculoskeletal: arm pain (soreness over R bicept. ) Focused Exam Lactate Level 05/16/20 22:58: Lactic Acid Level 1.76 Objective Exam Vital Signs Date Time Temp Pulse Resp B/P (MAP) Pulse Ox O2 Delivery O2 Flow Rate FiO2 05/18/20 08:00 99 Room Air 05/18/20 08:00 99 Room Air 05/18/20 07:45 37.2 91 128/71 99 Room Air 05/18/20 04:32 36.4 85 106/61 98 Room Air 05/18/20 00:30 37.2 05/17/20 23:15 38.2 103 119/65 95 Room Air 05/17/20 23:06 38.2 05/17/20 20:00 37.6 95 112/68 99 Room Air 05/17/20 19:52 Room Air 05/17/20 19:52 99 Room Air 05/17/20 16:00 36.8 85 125/75 99 Room Air 05/17/20 12:00 36.9 90 109/60 99 Room Air 05/17/20 09:00 99 Room Air 05/17/20 09:00 Room Air I & O 05/18/20 07:00 Intake Total 2800 ml Output Total 1450 ml Balance 1350 ml Capillary Refill : Less Than 3 Seconds General Appearance: No Apparent Distress, WD/WN Respiratory: Lungs Clear, Normal Breath Sounds, No Accessory Muscle Use, No Respiratory Distress Cardiovascular: Regular Rate, Rhythm, No Edema, No Gallop, No Murmur, Normal Peripheral Pulses Neurologic/Psychiatric: Alert, Oriented x3, No Motor/Sensory Deficits, Normal Mood/Affect Skin: Normal Color, Warm/Dry, Rash (right medial thigh redness and ttp. ) Lymphatic: No Adenopathy Results Lab Laboratory Tests 05/18/20 06:33: White Blood Count 20.3H, Red Blood Count 3.85L, Hemoglobin 11.9L, Hematocrit 36L , Mean Corpuscular Volume 94, Mean Corpuscular Hemoglobin 31, Mean Corpuscular Hemoglobin Concent 33, Red Cell Distribution Width 12.5, Platelet Count 214, Mean Platelet Volume 10.6, Immature Granulocyte % (Auto) 1, Neutrophils (%) (Auto) 80H, Lymphocytes (%) (Auto) 8L, Monocytes (%) (Auto) 9, Eosinophils (%) (Auto) 2, Basophils (%) (Auto) 0, Neutrophils # (Auto) 16.2H, Lymphocytes # (Auto) 1.7, Monocytes # (Auto) 1.9H, Eosinophils # (Auto) 0.3, Basophils # (Auto) 0.1, Immature Granulocyte # (Auto) 0.2H, Sodium Level 141, Potassium Level 4.1, Chloride Level 108H, Carbon Dioxide Level 22, Anion Gap 11, Blood Urea Nitrogen 7, Creatinine 0.87, Estimat Glomerular Filtration Rate > 60, BUN/ Creatinine Ratio 8, Glucose Level 107H, Calcium Level 8.8, Corrected Calcium 9.2, Total Bilirubin 0.4, Aspartate Amino Transf (AST/SGOT) 33, Alanine Aminotransferase (ALT/SGPT) 68H, Alkaline Phosphatase 100, Total Protein 6.3L, Albumin 3.5, Vancomycin Level Trough 11.5 Microbiology 05/16/20 Blood Culture - Preliminary, Resulted No growth Assessment/Plan Assessment/Plan Admission Diagonsis R thigh cellulitis and sepsis Assessment/Plan Right thigh cellulitis: Controlled on ABs. Continue to monitor its development. Recommend no intervention at this time. 05/17 CT of pelvis: IMPRESSION: 1. No soft tissue gas or loculated drainable collection. 2. Induration with the subcutaneous fat of the medial right thigh should correspond to the patient's reported cellulitis. 3. Findings are in agreement with the preliminary report. Sepsis: Likely due to cellulitis. Blood culture status still pending. WBC count increased to 20.3 today from 19.1. Continue Vancomycin, cefepime, and clindamyin . Methamphetamine abuse: consider counseling. Acute sepsis induced hepatitis: 05/18 liver function enzymes elevated. Continue to monitor liver status. Acute constipation: Consider Senna or Docusate if this develops into a primary concern for the pt. No abd pain at this time. Clinical Quality Measures DVT/VTE Risk/Contraindication: Risk Factor Score Per Nursin RFS Level Per Nursing on Admit: 4+=Very High SON CAMARILLO DO 05/18/20 1202: Subjective Time Seen by a Provider: 10:32 Subjective/Events-last exam Pt seen and examined, states he thinks the infection is spreading up into abdomen. He also thinks "it is taller" away from leg. He is concerned that it is not getting better with IV ABX. Review of Systems General: No Night Sweats, No Fatigue Cardiovascular: No: Chest Pain, Palpitations Gastrointestinal: Constipation (acute. ); No: Nausea, Vomiting, Abdominal Pain Objective Exam General Appearance: No Apparent Distress, WD/WN Respiratory: Lungs Clear, Normal Breath Sounds, No Accessory Muscle Use, No Respiratory Distress Cardiovascular: Regular Rate, Rhythm, No Murmur Gastrointestinal: non tender, soft, no organomegaly, hernia (small umbilical hernia) Neurologic/Psychiatric: Alert, Oriented x3 Skin: Other (Cellulitis Right upper inner thigh and ttp. no fluctuance pal pated. Erythema is outside line ) Assessment/Plan Assessment/Plan Assessment/Plan Right Thigh Cellulits - ?? slightly worse, ABX changed per IM. No signs of fluctuance, therefore nothing to I&D or drain at this time. Will continue to monitor. Supervisory-Addendum Brief Verification & Attestation Participated in pt care: history, MDM, physical Personally performed: exam, history, MDM Care discussed with: Medical Student Procedures: n/a Verification and Attestation of Medical Student E/M Service A medical student performed and documented this service. I then reviewed and verified all information documented by the medical student and made modifications to such information, when appropriate. I personally performed a physical exam, medical decision making and then discussed any differences between the notes and made revisions as necessary to create one note. Son Camarillo , 05/18/20 , 12:04 DIOGENES ROGERS MED STUDENT May 18, 2020 09:04 SON CAMARILLO DO May 18, 2020 12:02
--- NOTE | 2020-05-18 11:25 | Progress Note - Hospitalist ---
Subjective HPI/CC On Admission Date Seen by Provider: May 18, 2020 Time Seen by Provider: 11:15 Chief complaint: Right thigh cellulitis History of present illness: This is a 34-year-old white male who presented to the ER with worsening right medial thigh swelling and pain with redness. He is unsure when it really started. His drug screen was positive for methamphetamines. Patient was given IV antibiotics and Dr. Ashton consulted for possible incision and drainage. Patient has refused incision and drainage. Patient very jumpy and obviously withdrawing from methamphetamines. COVID swab taken he was in isolation and use of PPE was maintained during the entire interview and exam. Covid test returned back negative at 2000 hrs. Patient was about to leave AGAINST MEDICAL ADVICE but he decided against it. Subjective/Events-last exam Patient withdrawing from meth and causing him a lot of anxiety Convinced the cellulitis is rising up into his abdomen and there is no evidence of that and Dr Ford has evaluated him and no evidence of any involvement in his abdomen. Cellulitis has spread a bit so will add Eraxis. Anxiety will require benzos. Review of Systems General: Fatigue rash Focused Exam Lactate Level 05/16/20 22:58: Lactic Acid Level 1.76 Objective Exam Vital Signs Vital Signs Date Time Temp Pulse Resp B/P (MAP) Pulse Ox O2 Delivery O2 Flow Rate FiO2 05/18/20 16:18 36.2 95 141/69 98 Room Air 05/17/20 02:34 18 Capillary Refill : Less Than 3 Seconds General Appearance: No Apparent Distress, WD/WN, Anxious Respiratory: Chest Non Tender, Lungs Clear, Normal Breath Sounds, No Accessory Muscle Use, No Respiratory Distress Cardiovascular: Regular Rate, Rhythm, No Edema, No Gallop, No JVD, No Murmur, Normal Peripheral Pulses Neurologic/Psychiatric: Alert, Oriented x3, No Motor/Sensory Deficits, Normal Mood/Affect Skin: Rash (right thigh redness and ttp) Results/Procedures Lab Laboratory Tests 05/18/20 06:33 Patient resulted labs reviewed. Assessment/Plan Assessment and Plan Assess & Plan/Chief Complaint Cellulitis Meth use IV abx Eraxis Diagnosis/Problems Diagnosis/Problems (1) Cellulitis of right thigh Status: Acute (2) Hx MRSA infection Status: Acute (3) Methamphetamine use Status: Acute (4) Sepsis Status: Acute (5) Person under investigation for COVID-19 Status: Acute Clinical Quality Measures DVT/VTE Risk/Contraindication: Risk Factor Score Per Nursin RFS Level Per Nursing on Admit: 4+=Very High ASUNCION ELLIOTT DO May 18, 2020 11:25
[2020-05-18] MEDS ORDERED: ANIDULAFUNGIN INJECTION 200 MG in NS (IVPB) 250 ML IV NR (11:30)
[2020-05-18] MEDS ORDERED: ACETAMINOPHEN 500 MG TAB (TYLENOL) PO PRN (11:30)
[2020-05-18] MEDS ORDERED: polyethylene glycoL POWDER 17 GM (MIRALAX) PACK PO NR (11:45)
[2020-05-18] MEDS ORDERED: LACTULOSE SYRUP 10GM/15ML (ENULOSE) 30ML UDC PO NR (11:45)
[2020-05-18] MEDS ORDERED: SENNA W/DOCUSATE (SENOKOT S) TABLET PO NR (11:45)
[2020-05-18] MEDS: LORazepam 0.5 MG (ATIVAN) TABLET PO PRN ×2 (12:09→18:14)
--- NOTE | 2020-05-18 12:30 | NUR ---
ASSUMED CARE OF PATIENT. REPORT REC'D FROM VERONICA MEIER.
[2020-05-18] MEDS: ACETAMINOPHEN 500 MG TAB (TYLENOL) PO PRN (13:15)
[2020-05-18] MEDS: IBUPROFEN TABLET 200 MG TAB PO PRN (14:07)
--- NOTE | 2020-05-18 14:30 | NUR ---
UP WALKING IN HALLS.
--- NOTE | 2020-05-18 17:48 | NUR ---
PATIENT REPORTS SMALL BM. HAS BEEN UP FREQUENTLY WALKING IN THE HALLS.
[2020-05-18] MEDS ORDERED: WATER (STERILE) FOR INJECTION 10 ML ONE ×2 (18:20→23:13)
[2020-05-18] MEDS ORDERED: CEFEPIME 1 GM (MAXIPIME) VIAL ONE ×2 (18:20→23:13)
[2020-05-18] MEDS ORDERED: polyethylene glycoL POWDER 17 GM (MIRALAX) PACK PO SCH (21:00)
[2020-05-18] MEDS: SENNA W/DOCUSATE (SENOKOT S) TABLET PO SCH (21:10)
[2020-05-18] MEDS: LACTULOSE SYRUP 10GM/15ML (ENULOSE) 30ML UDC PO SCH (21:10)
[2020-05-19] MEDS: CLINDAMYCIN 600 MG/50 ML IVPB 50 ML IV SCH ×2 (01:17→06:35)
[2020-05-19] MEDS: ACETAMINOPHEN 500 MG TAB (TYLENOL) PO PRN (02:12)
[2020-05-19] MEDS ORDERED: WATER (STERILE) FOR INJECTION 10 ML ONE (06:24)
[2020-05-19] MEDS ORDERED: CEFEPIME 1 GM (MAXIPIME) VIAL ONE (06:24)
[2020-05-19] MEDS: CEFEPIME 1,000 MG/SWFI 10 ML IV PUSH IV SCH ×2 (06:35)
--- NOTE | 2020-05-19 06:49 | Progress Note - Hospitalist ---
Subjective HPI/CC On Admission Date Seen by Provider: May 19, 2020 Chief complaint: Right thigh cellulitis History of present illness: This is a 34-year-old white male who presented to the ER with worsening right medial thigh swelling and pain with redness. He is unsure when it really started. His drug screen was positive for methamphetamin es. Patient was given IV antibiotics and Dr. Ashton consulted for possible incision and drainage. Patient has refused incision and drainage. Patient very jumpy and obviously withdrawing from methamphetamines. COVID swab taken he was in isolation and use of PPE was maintained during the entire interview and exam. Covid test returned back negative at 2000 hrs. Patient was about to leave AGAINST MEDICAL ADVICE but he decided against it. Review of Systems rash Focused Exam Lactate Level 05/16/20 22:58: Lactic Acid Level 1.76 Objective Exam Vital Signs Vital Signs Date Time Temp Pulse Resp B/P (MAP) Pulse Ox O2 Delivery O2 Flow Rate FiO2 05/19/20 08:00 36.8 94 119/66 97 Room Air 05/17/20 02:34 18 Capillary Refill : Less Than 3 Seconds Results/Procedures Lab Laboratory Tests 05/19/20 07:30 Patient resulted labs reviewed. Assessment/Plan Assessment and Plan Assess & Plan/Chief Complaint Cellulitis Meth use IV abx Eraxis Diagnosis/Problems Diagnosis/Problems (1) Cellulitis of right thigh Status: Acute (2) Hx MRSA infection Status: Acute (3) Methamphetamine use Status: Acute (4) Sepsis Status: Acute (5) Person under investigation for COVID-19 Status: Acute Clinical Quality Measures DVT/VTE Risk/Contraindication: Risk Factor Score Per Nursin RFS Level Per Nursing on Admit: 4+=Very High ASUNCION ELLIOTT DO May 19, 2020 06:49
[2020-05-19] MEDS: VANCOMYCIN 1250 MG/NS 250 ML IVPB IV SCH ×2 (07:03)
[2020-05-19 07:36] LABS: BASOPHILS # (AUTO) 0.1 10^3/uL (0.0-0.1); BASOPHILS % (AUTO) 0 % (0-10); EOSINOPHILS # (AUTO) 0.4 10^3/uL (0.0-0.3); EOSINOPHILS % (AUTO) 2 % (0-10); HEMATOCRIT 34 % (40-54); HEMOGLOBIN 11.3 g/dL (13.3-17.7); LYMPHOCYTES # (AUTO) 1.7 10^3/uL (1.0-4.0); LYMPHOCYTES % (AUTO) 9 % (12-44); MEAN CORPUSCULAR HEMOGLOBIN 31 pg (25-34); MEAN CORPUSCULAR HGB CONC 34 g/dL (32-36); MEAN CORPUSCULAR VOLUME 92 fL (80-99); MEAN PLATELET VOLUME 10.3 fL (9.0-12.2); MONOCYTES # (AUTO) 1.3 10^3/uL (0.0-1.0); MONOCYTES % (AUTO) 7 % (0-12); NEUTROPHILS # (AUTO) 15.6 10^3/uL (1.8-7.8); NEUTROPHILS % (AUTO) 81 % (42-75); PLATELET COUNT 279 10^3/uL (130-400); WHITE BLOOD COUNT 19.3 10^3/uL (4.3-11.0)
[2020-05-19 07:53] LABS: ALANINE AMINOTRANSFERASE 58 U/L (0-55); ALBUMIN 3.4 GM/DL (3.2-4.5); ALKALINE PHOSPHATASE 104 U/L (40-136); BILIRUBIN,TOTAL 0.3 MG/DL (0.1-1.0); BUN/CREATININE RATIO 9; CALCIUM 8.8 MG/DL (8.5-10.1); CARBON DIOXIDE 21 MMOL/L (21-32); CHLORIDE 106 MMOL/L (98-107); CREATININE SERUM 0.87 MG/DL (0.60-1.30); GFR ESTIMATED > 60; GLUCOSE 134 MG/DL (70-105); SODIUM 139 MMOL/L (135-145); TOTAL PROTEIN 6.7 GM/DL (6.4-8.2)
[2020-05-19] MEDS: ENOXAPARIN 40 MG/0.4 ML (LOVENOX) SYR SC SCH (07:57)
[2020-05-19] MEDS: LORazepam 0.5 MG (ATIVAN) TABLET PO PRN (08:12)
[2020-05-19] MEDS: SENNA W/DOCUSATE (SENOKOT S) TABLET PO SCH (08:12)
[2020-05-19] MEDS: LACTULOSE SYRUP 10GM/15ML (ENULOSE) 30ML UDC PO SCH (08:13)
[2020-05-19] MEDS: IBUPROFEN TABLET 200 MG TAB PO PRN (08:13)
[2020-05-19] MEDS ORDERED: ANIDULAFUNGIN INJECTION 100 MG in NS (IVPB) 100 ML IV SCH ×2 (09:00→10:00)
--- NOTE | 2020-05-19 10:14 | Progress Note - Surgery ---
DIOGENES ROGERS MED STUDENT 05/19/20 1014: Subjective Time Seen by a Provider: 09:35 Subjective/Events-last exam pt states hes is 'feeling 100% better' compared to yesterday and would like to be discharged. Pt states he walked down to the 1st floor earlier today and this elicited no pain in R thigh, 0/10. WBC count dropped from 20.3 to 19.3. Additionally, the pt has passed stool multiple times since being provides laxatives and no longer feels distended. Though pt is feeling better, the cellulitis did not look improved on PE and remains outside the line draw by ER 2 days ago. Focused Exam Lactate Level 05/16/20 22:58: Lactic Acid Level 1.76 Objective Exam Vital Signs Date Time Temp Pulse Resp B/P (MAP) Pulse Ox O2 Delivery O2 Flow Rate FiO2 05/19/20 08:00 36.8 94 119/66 97 Room Air 05/19/20 08:00 Room Air 05/19/20 08:00 Room Air 05/19/20 03:53 36.8 80 120/74 96 Room Air 05/18/20 23:32 37.4 92 116/74 95 Room Air 05/18/20 21:10 Room Air 05/18/20 21:10 Room Air 05/18/20 19:34 37.4 84 124/69 96 Room Air 05/18/20 16:18 36.2 95 141/69 98 Room Air 05/18/20 15:15 37.2 05/18/20 13:44 Room Air 05/18/20 12:00 38.1 95 127/86 98 Room Air 05/18/20 11:45 36.9 91 118/73 99 Room Air 05/18/20 10:40 37.6 96 133/87 96 Room Air I & O 05/19/20 07:00 Intake Total 1810.0 ml Balance 1810.0 ml Capillary Refill : Less Than 3 Seconds General Appearance: No Apparent Distress, WD/WN HEENT: Pharynx Normal, Moist Mucous Membranes Neck: Full Range of Motion, Normal Inspection Respiratory: Lungs Clear, Normal Breath Sounds, No Accessory Muscle Use, No Respiratory Distress Cardiovascular: Regular Rate, Rhythm, No Edema (no edema in the legs and feet b/l, swelling is present around the R thigh cellulitis. ), No Gallop, No Murmur, Normal Peripheral Pulses Peripheral Pulses: 2+ Dorsalis Pedis (R), 2+ Left Dors-Pedis (L), 2+ Radial Pulses (R), 2+ Radial Pulses (L) Gastrointestinal: normal bowel sounds, non tender, soft, no organomegaly, hernia (small umbilical hernia) Extremity: No Pedal Edema Neurologic/Psychiatric: Alert, Oriented x3, Normal Mood/Affect, scanning clerk II-XII Norm as Tested Skin: Other (R thigh cellulitis, unimproved compared to 05/18 PE. ) Lymphatic: No Adenopathy Results Lab Laboratory Tests 05/19/20 07:30: White Blood Count 19.3H, Red Blood Count 3.66L, Hemoglobin 11.3L, Hematocrit 34L , Mean Corpuscular Volume 92, Mean Corpuscular Hemoglobin 31, Mean Corpuscular Hemoglobin Concent 34, Red Cell Distribution Width 12.5, Platelet Count 279, Mean Platelet Volume 10.3, Immature Granulocyte % (Auto) 1, Neutrophils (%) (Auto) 81H, Lymphocytes (%) (Auto) 9L, Monocytes (%) (Auto) 7, Eosinophils (%) (Auto) 2, Basophils (%) (Auto) 0, Neutrophils # (Auto) 15.6H, Lymphocytes # (Auto) 1.7, Monocytes # (Auto) 1.3H, Eosinophils # (Auto) 0.4H, Basophils # (Auto) 0.1, Immature Granulocyte # (Auto) 0.2H, Sodium Level 139, Potassium Level 4.0, Chloride Level 106, Carbon Dioxide Level 21, Anion Gap 12, Blood Urea Nitrogen 8, Creatinine 0.87, Estimat Glomerular Filtration Rate > 60, BUN/Creatinine Ratio 9, Glucose Level 134H, Calcium Level 8.8, Corrected Calcium 9.3, Total Bilirubin 0.3, Aspartate Amino Transf (AST/SGOT) 21, Alanine Aminotransferase (ALT/SGPT) 58H, Alkaline Phosphatase 104, Total Protein 6.7, Albumin 3.4 Microbiology 05/16/20 Blood Culture - Preliminary, Resulted No growth Assessment/Plan Assessment/Plan Assessment/Plan Right thigh cellulitis: unimproved compared to 05/18 PE, anidulafungin added yesterday. Continue to monitor its development. 05/17 CT of pelvis: IMPRESSION: 1. No soft tissue gas or loculated drainable collection. 2. Induration with the subcutaneous fat of the medial right thigh should correspond to the patient's reported cellulitis. 3. Findings are in agreement with the preliminary report. Sepsis: Likely due to cellulitis. Blood culture neg for preliminary growth. WBC count dropped from 20.3 to 19.3 today. Continue Vancomycin, cefepime, clindamyin and anidulafungin. Methamphetamine abuse: consider counseling. Acute sepsis induced hepatitis: 05/19 liver function enzymes remain elevated. Continue to monitor liver status. Acute constipation: laxative regiment started yesterday followed by successful evacuation of stool. Clinical Quality Measures DVT/VTE Risk/Contraindication: Risk Factor Score Per Nursin RFS Level Per Nursing on Admit: 4+=Very High SON CAMARILLO DO 05/19/20 1104: Subjective Time Seen by a Provider: 10:31 Subjective/Events-last exam Pt seen and examined, states he is walking without pain and thinks it has stopped spreading. He wants to go home. Review of Systems General: No Chills, No Night Sweats Cardiovascular: No: Chest Pain, Palpitations Gastrointestinal: No: Nausea, Vomiting, Abdominal Pain Objective Exam General Appearance: No Apparent Distress HEENT: Moist Mucous Membranes; No Scleral Icterus (L), No Scleral Icterus (R) Respiratory: Lungs Clear, Normal Breath Sounds, No Accessory Muscle Use, No Respiratory Distress Cardiovascular: Regular Rate, Rhythm, No Murmur Skin: Other (R thigh cellulitis, about same as yesterday....possibly a little better, not as firm ) Assessment/Plan Assessment/Plan Assessment/Plan Right Thigh Cellulitis It does not appear to be getting worse, it might be reasonable to send pt home on oral ABX. He was cautioned that if it get worse at all he needs to come back right away. No surgical intervention needed at this time. Supervisory-Addendum Brief Verification & Attestation Participated in pt care: history, MDM, physical Personally performed: exam, history, MDM Care discussed with: Medical Student Procedures: n/a Verification and Attestation of Medical Student E/M Service A medical student performed and documented this service. I then reviewed and verified all information documented by the medical student and made modifications to such information, when appropriate. I personally performed a physical exam, medical decision making and then discussed any differences between the notes and made revisions as necessary to create one note. Son Camarillo , 05/19/20 , 11:04 DIOGENES ROGERS MED STUDENT May 19, 2020 10:14 SON CAMARILLO DO May 19, 2020 11:04
[2020-05-19] MEDS ORDERED: FLUC100T PO (13:23)
[2020-05-19] MEDS ORDERED: CEFD300C3 PO (13:23)
--- NOTE | 2020-05-19 13:24 | Discharge Summary ---
Discharge Summary Hospital Course Was the Problem List Reviewed?: Yes Problems/Dx: (1) Cellulitis of right thigh Status: Acute (2) Hx MRSA infection Status: Acute (3) Methamphetamine use Status: Acute (4) Sepsis Status: Acute (5) Person under investigation for COVID-19 Status: Acute Hospital Course Date of Admission: May 17, 2020 at 01:40 Admission Diagnosis : Family Physician/Provider: No,Local Physician Date of Discharge: 05/19/20 Discharge Diagnosis: Right leg cellulitis, sepsis, meth use Hospital Course: Short course after admitted with ER and cellulitis placed on broad spectrum abx. IVF initiated. COVID swab negative. Dr Ford consulted. Added antifungal when cellulitis extended a bit and it had improved overnight so he was sent home on appropriate abx. Labs and Pending Lab Test: Laboratory Tests 05/19/20 07:30: White Blood Count 19.3H, Red Blood Count 3.66L, Hemoglobin 11.3L, Hematocrit 34L , Mean Corpuscular Volume 92, Mean Corpuscular Hemoglobin 31, Mean Corpuscular Hemoglobin Concent 34, Red Cell Distribution Width 12.5, Platelet Count 279, Mean Platelet Volume 10.3, Immature Granulocyte % (Auto) 1, Neutrophils (%) (Auto) 81H, Lymphocytes (%) (Auto) 9L, Monocytes (%) (Auto) 7, Eosinophils (%) (Auto) 2, Basophils (%) (Auto) 0, Neutrophils # (Auto) 15.6H, Lymphocytes # (Auto) 1.7, Monocytes # (Auto) 1.3H, Eosinophils # (Auto) 0.4H, Basophils # (Auto) 0.1, Immature Granulocyte # (Auto) 0.2H, Sodium Level 139, Potassium Level 4.0, Chloride Level 106, Carbon Dioxide Level 21, Anion Gap 12, Blood Urea Nitrogen 8, Creatinine 0.87, Estimat Glomerular Filtration Rate > 60, BUN/Creatinine Ratio 9, Glucose Level 134H, Calcium Level 8.8, Corrected Calcium 9.3, Total Bilirubin 0.3, Aspartate Amino Transf (AST/SGOT) 21, Alanine Aminotransferase (ALT/SGPT) 58H, Alkaline Phosphatase 104, Total Protein 6.7, Albumin 3.4 Microbiology 05/16/20 Blood Culture - Preliminary, Resulted No growth Home Meds Active Cefdinir 300 Mg Capsule 300 Mg PO BID Diflucan (Fluconazole) 100 Mg Tablet 100 Mg PO DAILY Reported Ibuprofen 200 Mg Tablet 400 Mg PO Q8H PRN Tylenol Extra Strength (Acetaminophen) 500 Mg Tablet 1,000 Mg PO Q6H PRN Clindamycin HCl 150 Mg Capsule 450 Mg PO QID TAKES 3 (150MG) CAPS FILLED 05-16-2020 #84/7 DAY SUPPLY Cephalexin 500 Mg Capsule 500 Mg PO QID FILLED 05-16-2020 #40/10 DAY SUPPLY Assessment/Pt Instructions [facility] 1 week Discharge Planning: <30 minutes discharge planning Discharge Instructions Discharge Diet: No Restrictions Discharge Physical Examination Vital Signs Vital Signs Date Time Temp Pulse Resp B/P (MAP) Pulse Ox O2 Delivery O2 Flow Rate FiO2 05/19/20 08:00 36.8 94 119/66 97 Room Air 05/17/20 02:34 18 General Appearance: No Apparent Distress, WD/WN Allergies: Coded Allergies: eszopiclone (Verified Allergy, Unknown, 05/16/20) quetiapine (Verified Allergy, Unknown, 05/16/20) amoxicillin trihydrate (Verified Adverse Reaction, Intermediate, NAUSEA, 05/19/12) potassium clavulanate (Verified Adverse Reaction, Intermediate, NAUSEA, 05/19/12) Discharge Summary Date of Admission May 17, 2020 at 01:40 Date of Discharge Discharge Date: May 19, 2020 Admission Diagnosis Assessment: Sepsis Right medial thigh cellulitis with questionable abscess consulting Dr. Ashton Methamphetamine use Plan: IV antibiotics COVID swab negative DVT prophylaxis Monitor for withdrawal Discharge Diagnosis Cellulitis Meth use IV abx Eraxis (1) Cellulitis of right thigh Status: Acute (2) Hx MRSA infection Status: Acute (3) Methamphetamine use Status: Acute (4) Sepsis Status: Acute (5) Person under investigation for COVID-19 Status: Acute Clinical Quality Measures DVT/VTE Risk/Contraindication: Risk Factor Score Per Nursin RFS Level Per Nursing on Admit: 4+=Very High ASUNCION ELLIOTT DO May 19, 2020 13:24
[2020-05-20] MEDS ORDERED: HYDR-3870 PO (13:19)
== END 2020-05-19 13:55 | disposition home or self-care (01) | DRG 872 ==
LOC: EDUNIT# 22:23 → ER 22:25 → CSD 05-17 01:40 → 4TH 05-18 11:44
PROVIDERS: ADMIT Internal Medicine; ATTEND Internal Medicine
DX: A41.9 Sepsis, unspecified organism (principal); L03.115 Cellulitis of right lower limb; K75.89 Other specified inflammatory liver diseases; K59.00 Constipation, unspecified; F15.980 Other stimulant use, unspecified with stimulant-induced anxiety disorder; F17.210 Nicotine dependence, cigarettes, uncomplicated; K21.9 Gastro-esophageal reflux disease without esophagitis; Z20.828 Contact with and (suspected) exposure to other viral communicable diseases
CPT/HCPCS: 36415; 71045; 72192; 80053; 80202; 80306; 80320; 81000; 83605; 83735; 84145; 85007; 85025; 85027; 85610; 85652; 85730; 86141; 87040; 87088; 87635; 93041

== ENCOUNTER 2020-05-20 09:59 | Emergency (ER) | payer MEDICARE ==
[~2020-05-20] VITALS: Ht 175 cm; Wt 104.3 kg
[~2020-05-20 09:59] MED LIST changes: +ACET-2267 PO; +CEFD300C3 PO; +CEPH500C PO; +CLIN150C17 PO; +FLUC100T PO; +IBUP-2473 PO
[2020-05-20] MEDS ORDERED: ASPIRIN 81 MG CHEW (CHILDREN'S ASA) PO ONE (10:30)
[2020-05-20] MEDS ORDERED: LORazepam INJ 2 MG/ML (ATIVAN) VIAL IVP PRN (10:45)
[2020-05-20 10:49] LABS: BASOPHILS # (AUTO) 0.1 10^3/uL (0.0-0.1); BASOPHILS % (AUTO) 0 % (0-10); EOSINOPHILS # (AUTO) 0.3 10^3/uL (0.0-0.3); EOSINOPHILS % (AUTO) 2 % (0-10); HEMATOCRIT 37 % (40-54); HEMOGLOBIN 12.7 g/dL (13.3-17.7); LYMPHOCYTES # (AUTO) 2.3 10^3/uL (1.0-4.0); LYMPHOCYTES % (AUTO) 11 % (12-44); MEAN CORPUSCULAR HEMOGLOBIN 31 pg (25-34); MEAN CORPUSCULAR HGB CONC 34 g/dL (32-36); MEAN CORPUSCULAR VOLUME 91 fL (80-99); MEAN PLATELET VOLUME 10.1 fL (9.0-12.2); MONOCYTES # (AUTO) 1.4 10^3/uL (0.0-1.0); MONOCYTES % (AUTO) 7 % (0-12); NEUTROPHILS % (AUTO) 79 % (42-75); PLATELET COUNT 373 10^3/uL (130-400); WHITE BLOOD COUNT 20.3 10^3/uL (4.3-11.0)
--- NOTE | 2020-05-20 10:50 | ED Integumentary General ---
General Chief Complaint: Skin/Wound Problems Stated Complaint: SOA;CHEST PRESSURE Nursing Triage Note: PT PRESENTS TO ED VIA POV FROM HOME FOR CONCERNS OF R LEG SWELLING/REDNESS. PT REPORTS HE WAS JUST DISCHARGED FROM ICU YESTERDAY FOR CELLULITIS IN HIS R THIGH. PT REPORTS HE DID GET HIS ANTIBIOTICS FILLED AND HAS BEEN TAKING THEM BUT FEELS THE INFECTION IS SPREADING. T REPROTS FEELING ANXIOUS AND STATES, " I DON'T KNOW IF ITS MY ANXIETY OR THE INFECTION THAT IS MAKING ME HAVE CHEST PRESSURE AND SOA.." Source: patient Exam Limitations: no limitations History of Present Illness Date Seen by Provider: May 20, 2020 Time Seen by Provider: 10:48 Initial Comments Admitted on 05/16/24 right thigh cellulitis And methamphetamine use, admitted to the hospital for 2 days and discharged yesterday on four antibiotics. He has picked up 3 of them but comes in with shortness of breath that he relates to his anxiety (had 2 negative Covid swabs on admission) because he fears the infection is spreading into his abdomen. Denies fevers or chills or cough. Timing/Duration: getting worse Severity: moderate Location: none Associated Symptoms: denies symptoms Allergies and Home Medications Allergies Coded Allergies: eszopiclone (Verified Allergy, Unknown, 05/16/20) quetiapine (Verified Allergy, Unknown, 05/16/20) amoxicillin trihydrate (Verified Adverse Reaction, Intermediate, NAUSEA, 05/19/12) potassium clavulanate (Verified Adverse Reaction, Intermediate, NAUSEA, 05/19/12) Home Medications Acetaminophen 500 Mg Tablet, 1,000 MG PO Q6H PRN for PAIN-MILD (1-4), (Reported) Cefdinir 300 Mg Capsule, 300 MG PO BID Prescribed by: ASUNCION ELLIOTT on 05/19/20 1323 Clindamycin HCl 150 Mg Capsule, 450 MG PO QID, (Reported) TAKES 3 (150MG) CAPS FILLED 05-16-2020 #84/7 DAY SUPPLY Fluconazole 100 Mg Tablet, 100 MG PO DAILY Prescribed by: ASUNCION ELLIOTT on 05/19/20 1323 Ibuprofen 200 Mg Tablet, 400 MG PO Q8H PRN for PAIN-MILD (1-4), (Reported) Patient Home Medication List Home Medication List Reviewed: Yes Review of Systems Review of Systems Constitutional: see HPI EENTM: see HPI Respiratory: see HPI; No cough; short of breath (which he relates to his anxiety, no fevers no cough. 5 negative covid tests this past week. ) Cardiovascular: no symptoms reported Genitourinary: no symptoms reported Musculoskeletal: no symptoms reported Skin: no symptoms reported Psychiatric/Neurological: No Symptoms Reported Endocrine: No Symptoms Reported Hematologic/Lymphatic: No Symptoms Reported Past Ejzhsyc-Xcotbb-Uinybx Hx Patient Social History Alcohol Use: Rarely Uses Recreational Drug Use: Yes Drug of Choice: meth- 4 days ago Smoking Status: Current Everyday Smoker Type Used: Cigarettes 2nd Hand Smoke Exposure: Yes Recent Foreign Travel: No Contact w/Someone Who Travel: No Recent Infectious Disease Expo: No Recent Hopitalizations: No Past Medical History Surgeries: Yes (EGD) Respiratory: No Cardiac: No Neurological: No Reproductive Disorders: No Genitourinary: No Gastrointestinal: Yes Gastroesophageal Reflux Musculoskeletal: No Endocrine: No HEENT: No Cancer: No Psychosocial: Yes (mood disorder, manic depressive) ADD/ADHD, Anxiety, Bipolar Integumentary: Yes (MRSA) Blood Disorders: No Family Medical History SOCIAL HISTORY : -ETOH--PT STATES "I USED TO BE A BAD [employer]CO[employer]OL[employer]" DRANK 1/2 GALLON OF ALCOHOL / DAY. CLAIMS NO RECENT USE OF 05/16/20 -DRUGS--SMOKES METH, DENIES IV USE -SMOKES 1/2 PPD CIGARETTES Physical Exam Vital Signs Vital Signs - First Documented 05/20/20 10:32 Temp 35.7 Pulse 81 Resp 14 B/P (MAP) 150/99 (116) Pulse Ox 100 Capillary Refill : Less Than 3 Seconds General Appearance: WD/WN, no apparent distress Neck: non-tender, full range of motion Cardiovascular: regular rate, rhythm, no murmur Respiratory: lungs clear, normal breath sounds, no respiratory distress, no accessory muscle use Gastrointestinal: normal bowel sounds, non tender Extremities: other (induration and erythema about the right proximal thigh. No crepitus. The erythema extends beyond the line drawn on the skin but it's unclear when this line was initially drawn.) Neurologic/Psychiatric: alert, normal mood/affect, oriented x 3 Skin: normal color, warm/dry Skin Problem Location: lower extremities Skin Problem Character: other (induration and erythema right proximal thigh. ) Progress/Results/Core Measures Results/Orders Lab Results Laboratory Tests Test 05/20/20 10:29 05/20/20 10:45 05/20/20 11:53 Range/Units White Blood Count 20.3 H 4.3-11.0 10^3/uL Red Blood Count 4.09 L 4.30-5.52 10^6/uL Hemoglobin 12.7 L 13.3-17.7 g/dL Hematocrit 37 L 40-54 % Mean Corpuscular Volume 91 80-99 fL Mean Corpuscular Hemoglobin 31 25-34 pg Mean Corpuscular Hemoglobin Concent 34 32-36 g/dL Red Cell Distribution Width 12.5 10.0-14.5 % Platelet Count 373 130-400 10^3/uL Mean Platelet Volume 10.1 9.0-12.2 fL Immature Granulocyte % (Auto) 1 % Neutrophils (%) (Auto) 79 H 42-75 % Lymphocytes (%) (Auto) 11 L 12-44 % Monocytes (%) (Auto) 7 0-12 % Eosinophils (%) (Auto) 2 0-10 % Basophils (%) (Auto) 0 0-10 % Neutrophils # (Auto) 16.0 H 1.8-7.8 10^3/uL Lymphocytes # (Auto) 2.3 1.0-4.0 10^3/uL Monocytes # (Auto) 1.4 H 0.0-1.0 10^3/uL Eosinophils # (Auto) 0.3 0.0-0.3 10^3/uL Basophils # (Auto) 0.1 0.0-0.1 10^3/uL Immature Granulocyte # (Auto) 0.3 H 0.0-0.1 10^3/uL Prothrombin Time 14.1 12.2-14.7 SEC INR Comment 1.1 0.8-1.4 Activated Partial Thromboplast Time 40 H 24-35 SEC D-Dimer 1.13 H 0.00-0.49 UG/ML Sodium Level 138 135-145 MMOL/L Potassium Level 3.8 3.6-5.0 MMOL/L Chloride Level 101 98-107 MMOL/L Carbon Dioxide Level 25 21-32 MMOL/L Anion Gap 12 5-14 MMOL/L Blood Urea Nitrogen 8 7-18 MG/DL Creatinine 0.96 0.60-1.30 MG/DL Estimat Glomerular Filtration Rate > 60 BUN/Creatinine Ratio 8 Glucose Level 106 H 70-105 MG/DL Calcium Level 9.9 8.5-10.1 MG/DL Corrected Calcium 9.7 8.5-10.1 MG/DL Magnesium Level 2.1 1.6-2.4 MG/DL Total Bilirubin 0.6 0.1-1.0 MG/DL Aspartate Amino Transf (AST/SGOT) 16 5-34 U/L Alanine Aminotransferase (ALT/SGPT) 54 0-55 U/L Alkaline Phosphatase 124 40-136 U/L Myoglobin 32.9 10.0-92.0 NG/ML Troponin I < 0.028 <0.028 NG/ML B-Type Natriuretic Peptide 23.6 <100.0 PG/ML Total Protein 8.0 6.4-8.2 GM/DL Albumin 4.2 3.2-4.5 GM/DL Lactic Acid Level 1.43 0.50-2.00 MMOL/L Urine Opiates Screen NEGATIVE NEGATIVE Urine Oxycodone Screen NEGATIVE NEGATIVE Urine Methadone Screen NEGATIVE NEGATIVE Urine Propoxyphene Screen NEGATIVE NEGATIVE Urine Barbiturates Screen NEGATIVE NEGATIVE Ur Tricyclic Antidepressants Screen NEGATIVE NEGATIVE Urine Phencyclidine Screen NEGATIVE NEGATIVE Urine Amphetamines Screen POSITIVE H NEGATIVE Urine Methamphetamines Screen POSITIVE H NEGATIVE Urine Benzodiazepines Screen POSITIVE H NEGATIVE Urine Cocaine Screen NEGATIVE NEGATIVE Urine Cannabinoids Screen NEGATIVE NEGATIVE My Orders Orders - VONNIE OSCAR APRN Cbc With Automated Diff (05/20/20 10:30) Magnesium (05/20/20 10:30) Chest 1 View, Ap/Pa Only (05/20/20 10:30) Ekg Tracing (05/20/20 10:30) Comprehensive Metabolic Panel (05/20/20 10:30) Myoglobin Serum (05/20/20 10:30) Protime With Inr (05/20/20 10:30) Partial Thromboplastin Time (05/20/20 10:30) O2 (05/20/20 10:30) Monitor-Rhythm Ecg Trace Only (05/20/20 10:30) Lipid Panel (05/21/20 06:00) Ed Iv/Invasive Line Start (05/20/20 10:30) BNP (05/20/20 10:30) Fibrin Degradation Products (05/20/20 10:30) Troponin I (05/20/20 10:30) Aspirin Chewable Tablet (Baby Aspirin Ch (05/20/20 10:30) Blood Culture (05/20/20 10:44) Lactic Acid Analyzer (05/20/20 10:44) Ct Pelvis W (05/20/20 10:44) Lorazepam Injection (Ativan Injection) (05/20/20 10:45) Iohexol Injection (Omnipaque 350 Mg/Ml 1 (05/20/20 11:00) Received Contrast (Hold Metformin- Contr (05/20/20 11:00) Ns (Ivpb) (Sodium Chloride 0.9% Ivpb Bag (05/20/20 11:00) Drug Screen Stat (Urine) (05/20/20 11:09) Us Soft Tissue Unlisted [id number] (05/20/20 11:48) Medications Given in ED Current Medications Medications Dose Ordered Sig/Barbie Route Start Time Stop Time Status Last Admin Dose Admin Iohexol 100 ml ONCE ONCE IV 05/20/20 11:00 05/20/20 11:01 DC 05/20/20 11:02 100 ML Lorazepam 1 mg ONCE PRN IVP 05/20/20 10:45 05/20/20 10:52 1 MG Sodium Chloride 100 ml ONCE ONCE IV 05/20/20 11:00 05/20/20 11:01 DC 05/20/20 11:02 80 ML Vital Signs/I&O 05/20/20 10:32 Temp 35.7 Pulse 81 Resp 14 B/P (MAP) 150/99 (116) Pulse Ox 100 Blood Pressure Mean: 116 Departure Communication (Admissions) [id number] spoke with both Dr. Ford and Dr. Elliott about admission, both recommend to proceed with continued outpatient therapy on antibiotics. Impression Primary Impression: Cellulitis of right thigh Disposition: HOME, SELF-CARE Condition: Stable Departure-Patient Inst. Decision time for Depature: 13:17 Referrals: NO,LOCAL PHYSICIAN (PCP) Primary Care Physician Patient Instructions: Cellulitis (Skin Infection), Adult (DC) Add. Discharge Instructions: Continue current antibiotics. Pain medication as directed. All discharge instructions reviewed with patient and/or family. Voiced understanding. Images Extremities-Lower 1 - Cellulitis VONNIE OSCAR [employer] May 20, 2020 10:50
[2020-05-20 10:53] LABS: ALBUMIN 4.2 GM/DL (3.2-4.5)
[2020-05-20 10:54] LABS: CHLORIDE 101 MMOL/L (98-107); POTASSIUM 3.8 MMOL/L (3.6-5.0); SODIUM 138 MMOL/L (135-145)
[2020-05-20 10:55] LABS: CALCIUM 9.9 MG/DL (8.5-10.1)
[2020-05-20 10:56] LABS: GLUCOSE 106 MG/DL (70-105); INR 1.1 (0.8-1.4); PROTHROMBIN TIME PATIENT 14.1 SEC (12.2-14.7)
[2020-05-20 10:57] LABS: CARBON DIOXIDE 25 MMOL/L (21-32)
[2020-05-20 10:58] LABS: BILIRUBIN,TOTAL 0.6 MG/DL (0.1-1.0)
[2020-05-20 10:59] LABS: ALKALINE PHOSPHATASE 124 U/L (40-136)
[2020-05-20 11:00] LABS: CREATININE SERUM 0.96 MG/DL (0.60-1.30); GFR ESTIMATED > 60
[2020-05-20] MEDS ORDERED: IOHEXOL 350 MG/ML 100 ML (OMNIPAQUE 350) VIAL IV ONE (11:00)
[2020-05-20] MEDS ORDERED: HOLD METFORMIN - RECEIVED CONTRAST 20 ML VIAL IV SCH (11:00)
[2020-05-20] MEDS ORDERED: NS 100 ML (IVPB) BAG IV ONE (11:00)
[2020-05-20 11:01] LABS: BUN/CREATININE RATIO 8
[2020-05-20 11:02] LABS: ALANINE AMINOTRANSFERASE 54 U/L (0-55)
[2020-05-20 11:03] LABS: MAGNESIUM 2.1 MG/DL (1.6-2.4)
--- NOTE | 2020-05-20 11:21 | Diagnostic Imaging Report ---
PROCEDURE: CT pelvis with contrast. TECHNIQUE: Oral and intravenous contrast were administered with pelvic CT performed. Auto Exposure Controls were utilized during the CT exam to meet ALARA standards for radiation dose reduction. INDICATION: Cellulitis in the right groin. Correlation is made with recent CT from 05/17/2020. There continues to be induration in the subcutaneous fat of the anterior as well as medial upper right thigh and right perineal region. No drainable fluid collection is seen. No soft tissue gas is identified. There are some prominent probable reactive lymph nodes in the right groin. Left groin is unremarkable. The bladder shows moderate distention. Visualized bowel loops are unremarkable. There is no free fluid in the pelvis. The prostate is unremarkable. IMPRESSION: Continued cellulitic changes in the right upper thigh with reactive lymphadenopathy in the right groin. No drainable fluid collection or soft tissue gas is detected. Overall appearance is similar to examination from 3 days earlier. Dictated by: Dictated on workstation # [id number]
--- NOTE | 2020-05-20 11:21 | Diagnostic Imaging Report ---
INDICATION: Chest pain, history of cellulitis. Frontal chest obtained at 1113 a.m. and compared to 05/16/2020. Heart and mediastinal silhouette are normal in appearance. The lungs are clear. There is no pneumothorax or pleural fluid. IMPRESSION: Negative chest. Dictated by: Dictated on workstation # [id number]
[2020-05-20 12:33] LABS: AMPHETAMINE SCREEN, URINE POSITIVE (NEGATIVE); BARBITURATE SCREEN URINE NEGATIVE (NEGATIVE); BENZODIAZEPINES SCREEN URINE POSITIVE (NEGATIVE); CANNABINOID SCREEN, URINE NEGATIVE (NEGATIVE); COCAINE SCREEN URINE NEGATIVE (NEGATIVE); METHADONE STAT NEGATIVE (NEGATIVE); METHAMPHETAMINE SCREEN URINE S POSITIVE (NEGATIVE); OPIATE SCREEN URINE NEGATIVE (NEGATIVE); OXYCODONE STAT NEGATIVE (NEGATIVE); PROPOXYPHENE STAT NEGATIVE (NEGATIVE); TRICYCLIC ANTIDEPRESSANTS SCRE NEGATIVE (NEGATIVE)
[2020-05-20] MEDS ORDERED: HYDR-3870 PO (13:19)
[2020-05-20 13:43] VITALS: BP 142/97
--- NOTE | 2020-05-21 07:27 | Diagnostic Imaging Report ---
Exam time: 05/21/2020 7:10 AM REASON FOR EXAM: Right groin cellulitis and edema. COMPARISON: None. TECHNIQUE: High resolution real-time imaging of the right groin was performed. FINDINGS: Subcutaneous edema is noted in the right groin. Multiple prominent lymph nodes are seen in the right groin. No loculated fluid collections are seen to suggest abscess. No soft tissue mass is present. IMPRESSION: 1. Edema and lymphadenopathy in the right groin without evidence of abscess or soft tissue mass. Dictated by: Dictated on workstation # [id number]
== END 2020-05-20 13:43 | disposition home or self-care (01) ==
LOC: EDUNIT# 09:59 → ER 10:00
DX: L03.115 Cellulitis of right lower limb (principal); F41.9 Anxiety disorder, unspecified; F17.210 Nicotine dependence, cigarettes, uncomplicated; F15.90 Other stimulant use, unspecified, uncomplicated; Z88.1 Allergy status to other antibiotic agents; Z88.8 Allergy status to other drugs, medicaments and biological substances
CPT/HCPCS: 36415; 71045; 72193; 76999; 80053; 80306; 83605; 83735; 83874; 83880; 84484; 85025; 85379; 85610; 85730; 87040; 93005; 93041